=== PATIENT | male | born 1950 | race Caucasian/White ===

== ENCOUNTER 2023-05-20 20:29 | Inpatient (IN) | payer MEDICARE, OTHER, SELFPAY ==
[2023-05-20] VITALS (7 sets, daily range): BP systolic 125–141; BP diastolic 61–83; BMI 26.1
[2023-05-20] MEDS: ZOFRAN 4 MG IV ×2 (17:51→19:20)
[2023-05-20] MEDS: NSS 2000 IV (17:51)
[2023-05-20] MEDS: DILAUDID 1 MG IV ×3 (17:51→21:57)
--- NOTE | 2023-05-20 18:02 | ED.GENMED ---
History of Present Illness
General
Chief Complaint: Abdominal Pain
Source: patient
Exam Limitations: none
Time Seen by Provider: 05/20/23 17:41
Nursing documentation reviewed up to this point in time: agreed with
Travel History
Have you had any contact with someone who has COVID-19?: No
Do you have any symptoms of coronavirus? Fever > 100 degrees, chills, cough, shortness of breath, sore throat, loss of taste or smell, muscle aches, or headache?: No
History of Present Illness
History of Present Illness:
73-year-old male with distant history of kidney stones acute onset of left lower abdominal pain trouble urinating pain in the tip of his penis at 1 PM vomited numerous times yesterday some diarrhea chills, does not believe he is ever passed a kidney
stone but was told that he has a stone
Past History
Past History
ED Past Medical History: Cancer
ED Past Surgical History: Other (prostatectomy )
Social History
Tobacco: Non-smoker
Alcohol: None
Drug: None
Living: with family
Employment: Retired
Review of Systems
Review of Systems
All Other Systems: Not applicable
Constitutional: Reports chills; Denies fever or fatigue
EENT: Reports no symptoms
Respiratory: Reports no symptoms
Cardiac: Reports no symptoms
ABD/GI: Reports abdominal pain, nausea, vomiting and diarrhea
: Reports difficulty voiding
Hematologic/Lymphatic: Reports no symptoms
Psychiatric: Reports no symptoms
Phy Exam
Physical Exam
Physical Exam:
Physical Exam
General: 73 male looks uncomfortable in acute pain
Neck: Lips are slightly
Heart: Regular
Lungs: no acute respiratory distress. clear bilaterally
Abdomen: Soft tender in the left lower
Neuro: alert and oriented. no focal neurological deficits
Skin: no rash
Psychiatric: cooperative
Extremities: no edema.
Course
Orders/Labs/Results
Orders:
Orders
05/20/23 17:45
Cardiac Monitoring- Treatment ONCE
IV Insert/Care/Rem.- Treatment PRN
Urinalysis Reflex To Culture Urgent
0.9% Sodium Chloride 1000 ml [Nss] 2,000 ml IV BOLUS
HYDROmorphone [Dilaudid] 1 mg IV NOW STA
Ondansetron Injectable [Zofran] 4 mg IV NOW STA
05/20/23 17:46
CT Abd/pel Without Iv Or Oral Urgent
Comment:
Reason For Exam: left lower quad pain
05/20/23 17:56
Complete Blood Count/With Diff Urgent
Comprehensive Metabolic Panel Urgent
Lactic Acid Q4H
Comment: CANCEL 2nd LACTIC ACID IF 1st LACTIC ACID IS LESS THAN 2
Lipase Urgent
Blood Culture Q30M
CECILIA Source: Blood/Venous
Specimen Description:
Blood Culture Q30M
CECILIA Source: Blood/Venous
Specimen Description:
05/20/23 19:12
HYDROmorphone [Dilaudid] 1 mg IV NOW STA
05/20/23 19:17
Ondansetron Injectable [Zofran] 4 mg IV NOW STA
05/20/23 19:30
UROLOGY CONSULT Urgent
Consulting Provider: Ashu Franklin
Was physician already notified: Yes
05/20/23 19:31
CefTRIAXone [Rocephin] 1,000 mg IV NOW STA
05/20/23 22:00
Lactic Acid Q4H
Comment: CANCEL 2nd LACTIC ACID IF 1st LACTIC ACID IS LESS THAN 2
Abnormal Lab Results
05/20/23
17:56
WBC 14.8 H 10^3/uL
(4.8-10.8)
MPV 10.9 H fL
(7.4-10.4)
Abs Immat Gran (auto) 0.1 H 10^3/uL
(0-0.05)
Absolute Neuts (auto) 12.6 H 10^3/uL
(1.4-6.5)
Neutrophils % 85.5 H %
(42.2-75.2)
Lymphocytes % 9.4 L %
(20.5-51.1)
Carbon Dioxide 20 L mmol/L
(22-30)
Glucose 141 H mg/dl
(70-99)
Lactic Acid 3.9 H mmol/L
(0.7-2.0)
Total Bilirubin 2.3 H mg/dl
(0.2-1.3)
05/20/23 17:56
05/20/23 17:56
Vital Signs
Initial and Last Documented VS:
Initial Vital Signs
Temp Pulse Resp BP
97.8 F 55 22 132/79
05/20/23 17:34 05/20/23 17:34 05/20/23 17:34 05/20/23 17:34
Last Documented Vital Signs
Temp Pulse Resp BP
97.8 F 64 25 134/65
05/20/23 17:34 05/20/23 19:15 05/20/23 19:15 05/20/23 19:00
MDM/Problems Addressed
Differential Diagnosis Includes:
Ureteral stone colitis diverticulitis enteritis
MDM/Problems Addressed:
Abdominal pain
Chronic conditions affecting care: Cancer
Acute Exacerbation and/or Progression of Chronic Illness: Cancer
*Radiology
Radiology exam reviewed: preliminary read by ED provider
*Pulse Oximetry
Patient hypoxic: no
*Critical Care Note
Total Time (30-74mins, 75-104mins- exclusive of procedures): Not Applicable
Update Note
Update Note:
Update 7:10 PM patient back from CAT scan looks like a stone and hydro to my eye full report pending having pain per report will redosed with meds
7:25 PM CAT scan report noted reviewed with patient and friend prior records reviewed he had sepsis after prostate biopsy he tolerated penicillins and cephalosporins at that time
Reviewed with hospitalist and urologist, urinalysis is pending started on Rocephin here plan is for admission for OR tomorrow sooner if he develops instability
ED Attending Note
-
Portions of this chart may have been created with voice recognition software.� Occasional wrong word or��sound alike� substitutions may have occurred due to the inherent limitations of voice recognition software.
Discharge Plan
Departure
Patient Disposition: Admit
Date of Disposition: 05/20/23
Time of Disposition: 19:32
Admit to: Med/Surg
Presentation/result/management discussed w/ accepting MD/DO: Hospitalist
Patient with high blood pressure during this ER visit?: No
Condition: Fair
Covid-19: Not Applicable
Discharge Problem:
Ureteral colic
Prescriptions:
No Action
valacyclovir [Valtrex] 500 MG tablet
500 mg PO DAILY
aspirin 81 MG tablet
81 mg PO DAILY
Patient Comments:
stopped taking pre-op 03/14/09
Zocor
20 mg PO DAILY
Patient Comments:
pt not sure of mg dosage
Sharon
PRN (Reason: allergy symptoms)
Patient Comments:
last dose was 1 month ago
oxycodone-acetaminophen 5 MG/325 MG tablet
1 tab PO Q6HPRN PRN (Reason: pain) Qty: 15 0RF
Referrals:
Adrian Gonzalez MD [Family Provider] -
Interventions
Interventions:
*Risk Screen - Suicide Last Done: 05/20/23 17:42
*General Assessment Last Done: 05/20/23 17:43
*Neglect/Abuse Screening Last Done: 05/20/23 17:42
*ED COVID-19 Vaccine History Last Done: 05/20/23 17:43
WD-Zudxqu-Vgtpuxlzkj Assessment Last Done: 05/20/23 17:43
Discharge Date and Time
Print Language: UZBEK
[2023-05-20 18:05] LABS: % Basophils 0.4 % (0-2); % Eosinophils 0.1 % (0-6); % Immature Granulocytes 0.3 % (0-0.5); % Lymphocytes 9.4 % (20.5-51.1); % Monocytes 4.3 % (1.7-9.3); % Neutrophils 85.5 % (42.2-75.2); Absolute Basophils 0.1 10^3/uL (0-0.2); Absolute Immature Granulocytes 0.1 10^3/uL (0-0.05); Absolute Lymphocytes 1.4 10^3/uL (1.2-3.4); Absolute Monocytes 0.6 10^3/uL (0.1-0.6); Absolute Neutrophils 12.6 10^3/uL (1.4-6.5); Hematocrit 44.8 % (39.0-52.0); Mean Corp Hgb Conc. 35.7 g/dL (33.0-37.0); Mean Corpuscular Hgb 30.9 pg (27.0-31.0); Mean Corpuscular Volume 86.7 fL (80.0-94.0); Mean Platelet Volume 10.9 fL (7.4-10.4); Nucleated Red Blood Cells % 0 % (-); Platelet Count 161 10^3/uL (130-400); Red Blood Cell Count 5.17 10^6/uL (4.70-6.10); Red Cell Dist. Width 13.7 % (11.5-14.5); White Blood Cell Count 14.8 10^3/uL (4.8-10.8)
[2023-05-20 18:19] LABS: ALT (SGPT) 22 U/L (0-50); AST (SGOT) 27 U/L (17-59); Alkaline Phosphatase 99 U/L (38-126); Blood Urea Nitrogen 18 mg/dl (9-20); Carbon Dioxide 20 mmol/L (22-30); Chloride 104 mmol/L (98-107); Glucose 141 mg/dl (70-99); Lipase 82 U/L (23-300); Potassium 3.6 mmol/L (3.5-5.1); Sodium 138 mmol/L (135-145); Total Bilirubin 2.3 mg/dl (0.2-1.3); Total Protein 7.8 g/dl (6.3-8.2); eGFR > 60.00
[2023-05-20 18:20] LABS: Lactic Acid 3.9 mmol/L (0.7-2.0)
[2023-05-20] MEDS: ROCEPHIN 1000 MG IV (19:48)
--- NOTE | 2023-05-20 19:48 | HPS.HSE ---
Family Physician
-
Family Physician: Adrian Gonzalez
Chief Complaint
-
Problems with urination
History of Present Illness
73-year-old man with history of kidney stones has acute onset of left lower abdominal pain, trouble urinating, pain in the tip of his penis, and at 1 PM he vomited numerous times. Yesterday he had some diarrhea chills. CT shows:
1. Obstructive uropathy secondary to an 8 mm calculus in the distal left ureter and a 5 mm calculus in the proximal left ureter causing severe left hydroureteronephrosis.
2. Bilateral nephrolithiasis.
He also has an elevated WBC of 14.8. At the time of my interview he was comfortable.
Medical History
Past Medical History
Past Medical History: Reports Other
Additional Past Medical History:
kidney stones
high cholesterol
Sleep apnea
Past Surgical History: Reports None
Social History
Tobacco: Non-smoker
Alcohol: None
Drug: None
Family History
Family History: Other (Brother has kidney stones)
Allergies / Home Medications
Allergies reflects when Allergies were last updated in [facility].
Home Medications with original date entered in [facility]
Allergy/Medication List:
Allergies
Allergy/AdvReac Type Severity Reaction Status Date / Time
iodine [Iodine] Allergy possible Verified 05/20/23 17:34
allergy
Penicillins Allergy Unknown Verified 05/20/23 17:34
Home Medications
simvastatin 20 mg tablet (Zocor) 20 mg PO DAILY 01/09/09
valacyclovir 500 mg tablet (Valtrex) 500 mg PO DAILY 01/09/09
sildenafil 100 mg tablet 100 mg PO DAILYPRN PRN ed 05/20/23
Review of Systems
-
A 12 point ROS was completed and negative except as noted: Yes
Physical Exam
Vital Signs
Vital Signs
Temp Pulse Resp BP
97.8 F 64 25 134/65
05/20/23 17:34 05/20/23 19:15 05/20/23 19:15 05/20/23 19:00
Physical Exam
General: Well Developed, Well Nourished, No Apparent Distress, Comfortable and Conversant
HEENT: NormoCephalic, Moist mucous membranes, [place] Conjunctivae, No Ptosis, Nose Appears Normal and Ears Appear Normal
Respiratory: Clear
Cardiac: S1/S2 and Regular Rhythm
GI: Soft, Tender and Flat
Musculoskeletal: No Clubbing, No Cyanosis and No Edema
Skin: Warm and Dry; No Rash or Jaundice
Neuro: Awake, Alert, Oriented and AO x 3
Psych: Calm
Laboratory Results
-
05/20/23 17:56
05/20/23 17:56
Laboratory Results
Lactic Acid 3.9 mmol/L (0.7-2.0) H 05/20/23 17:56
Total Bilirubin 2.3 mg/dl (0.2-1.3) H 05/20/23 17:56
AST 27 U/L (17-59) 05/20/23 17:56
ALT 22 U/L (0-50) 05/20/23 17:56
Alkaline Phosphatase 99 U/L (38-126) 05/20/23 17:56
Lipase 82 U/L (23-300) 05/20/23 17:56
Data Reviewed
-
Lab Data: Labs Reviewed by me
Impression/Plan
-
IMPRESSION:
73 man with h/o kidney stones comes in with kidney stones. CT shows:
1. Obstructive uropathy secondary to an 8 mm calculus in the distal left ureter and a 5 mm calculus in the proximal left ureter causing severe left hydroureteronephrosis.
2. Bilateral nephrolithiasis.
PLAN:
1. Kidney stones
Urology consulted
NPO after midnight, likely stent tomorrow
IV antibiotics
IV fluids
Pain and nausea control
Full code
VCD for DVTp
--- NOTE | 2023-05-20 21:00 | W.PN.UPDATE ---
Update Note
Progress Note Update
73M presenting to ER w/ emesis, left lower quadrant abdominal pain, urethral pain.
WBC - 14.8
Cr - wnl
UA - not indicative of UTI
CTAP w/o IV contrast =>
1. Obstructive uropathy secondary to an 8 mm calculus in the distal left ureter and a 5 mm calculus in the proximal left ureter causing severe left hydroureteronephrosis.
2. Bilateral nephrolithiasis.
Plan:
- Admit to Hospital Medicine, analgesics prn, anti-emetics prn
- IV Cipro initiated on admission
- NPO@MN
- To OR tomorrow afternoon for cysto + LEFT stent placement (posted to OR schedule)
- Patient to be examined in AM and surgical consent obtained
D/w ER physician.
D/w Hospitalist.
[2023-05-20] MEDS: NSS 1000 IV (21:58)
--- NOTE | 2023-05-20 22:00 | PTCARENOTE ---
Pt arrived to unit from ED and ambulated independently from stretcher to bed. VS on admission stable. Pt oriented to room, call valdes within reach. Will continue to monitor.
[2023-05-20 22:09] LABS: Lactic Acid 1.3 mmol/L (0.7-2.0)
[2023-05-20] MEDS: COMPAZINE 5 MG IV (22:19)
[2023-05-21] VITALS (9 sets, daily range): BP systolic 105–126; BP diastolic 54–65
[2023-05-21] MEDS: DILAUDID 1 MG IV ×2 (03:01→12:48)
--- NOTE | 2023-05-21 04:00 | PTCARENOTE ---
2218: Pt complaining of nausea, no anti-emetic medications ordered. [place] MAXINE Rea notified, order for 1x IV Compazine 5mg provided to pt. At 0400 pt reports nausea again. [place] MAXINE Rea notified, order for PRN IV Compazine
5mg q6h acknowledged and given to pt.
[2023-05-21] MEDS: COMPAZINE 5 MG IV (04:32)
[2023-05-21] MEDS: NSS 1000 IV ×3 (05:47→18:14)
[2023-05-21] MEDS: CIPRO 400 MG 200 IV ×2 (08:49→20:25)
[2023-05-21 09:13] LABS: Hematocrit 42.8 % (39.0-52.0); Hemoglobin 14.1 g/dL (13.0-18.0); Mean Corp Hgb Conc. 32.9 g/dL (33.0-37.0); Mean Corpuscular Hgb 30.5 pg (27.0-31.0); Mean Corpuscular Volume 92.4 fL (80.0-94.0); Mean Platelet Volume 11.4 fL (7.4-10.4); Platelet Count 121 10^3/uL (130-400); Red Blood Cell Count 4.63 10^6/uL (4.70-6.10); Red Cell Dist. Width 14.2 % (11.5-14.5); White Blood Cell Count 14.5 10^3/uL (4.8-10.8)
[2023-05-21 09:36] LABS: Blood Urea Nitrogen 19 mg/dl (9-20); Calcium 8.6 mg/dl (8.4-10.2); Carbon Dioxide 24 mmol/L (22-30); Chloride 105 mmol/L (98-107); Estimated Creatinine Clearance 47 ml/min; Glucose 105 mg/dl (70-99); Magnesium 2.1 mg/dl (1.6-2.3); Sodium 140 mmol/L (135-145); eGFR 52.41
--- NOTE | 2023-05-21 11:35 | CM ---
Patient seen bedside, initial assessment completed. Patient reports he resides with his in a three story home, three steps to enter. Patient reports VN in past in 2009 after prostate surgery, denies SNF. Patient has a CPAP through .
Supply in [place], denies other DME. Patient confirms PCP Dr. Gonzalez, pharmacy [facility]. CM will continue to follow for discharge planning needs, per chart, plan for OR this afternoon.
Plan; home with , watch for VN needs.
--- NOTE | 2023-05-21 12:13 | W.PN.HOSP.TC ---
Today's Communication/Plan
-
Continue IV fluids
Continue ciprofloxacin
Monitor renal status
Bladder scan protocol
Await urologic intervention and monitor
Assessment / Plan
Assessment / Plan
73-year-old man with history of kidney stones has acute onset of left lower abdominal pain, trouble urinating, pain in the tip of his penis, and at 1 PM he vomited numerous times. Yesterday he had some diarrhea chills. CT shows:
1. Obstructive uropathy secondary to an 8 mm calculus in the distal left ureter and a 5 mm calculus in the proximal left ureter causing severe left hydroureteronephrosis.
2. Bilateral nephrolithiasis.
He also has an elevated WBC of 14.8. At the time of my interview he was comfortable.
Does state although he is having left flank pain moving up he is also not urinated this morning at all.
1. Kidney stones
Urology consulted
NPO after midnight, likely stent today
IV antibiotics
IV fluids
Pain and nausea control
2. Acute kidney injury
-In relation to obstructive uropathy
-Severe left hydroureteronephrosis seen on imaging
-Will place on bladder scan protocol and straight cath as necessary while awaiting urologic intervention
-Continue IV fluids trend BMP
3. UTI possibly complicated
-Continue on ciprofloxacin IV
Full code
VCD for DVTp
Anticipated Discharge: Within 24 hours
Subjective/Interval History
-
Date of Service: May 21, 2023
Patient with referred left flank pain now seems to be moved up with it he states. He has not urinated any appreciable amount around this morning. Does not refer any suprapubic discomfort as yet.
Objective Data
-
Labs:
Laboratory Results
05/21/23
08:19
WBC 14.5 H
Hgb 14.1
Hct 42.8
Plt Count 121 L D
Sodium 140
Potassium 4.0
Chloride 105
Carbon Dioxide 24
BUN 19
Creatinine 1.4 H
Glucose 105 H
Calcium 8.6
Vital Signs:
Vital Signs
Temp Pulse Resp BP Pulse Ox
98.3 F 54 18 115/64 94
05/21/23 07:30 05/21/23 07:30 05/21/23 07:30 05/21/23 07:30 05/21/23 07:30
I&O
05/20/23 05/21/23 05/22/23
06:59 06:59 06:59
Intake Total 1480 / 1480
Balance 1480 / 1480
Review of Systems
-
History Source: Patient
Abdomen/GI: Reports Abdominal Pain
Genitourinary: Reports Flank Pain and Hesitancy
Physical Exam
-
General: Well Developed
Respiratory: Clear to Auscultation
Cardiac: Regular Rhythm
GI: Soft, Nontender and Nondistended
Genito-urinary: Costovertebral Angle Tend
Neuro: Awake and Alert
Data Reviewed
-
Total Time Spent with Patient (in minutes): 45
Labs: Labs Reviewed by me (No 1.4 above his baseline 1.1)
[2023-05-21 12:51] LABS: Urine Albumin Negative (Neg - Trace); Urine Bilirubin 1+ (Negative); Urine Character Clear (Clear); Urine Color Yellow; Urine Glucose Negative (Negative); Urine Ketone Trace (Negative); Urine Leukocyte Negative (Negative); Urine Nitrite Positive (Negative); Urine Occult Blood Negative (Negative); Urine Specific Gravity 1.025 (<1.030); Urine Urobilinogen 1+ (Neg - 1+)
[2023-05-21 13:36] LABS: Urine Bacteria Few (Negative); Urine Mucus Few; Urine Red Blood Cell 0-2 /HPF (0-2); Urine Squamous Cell 0-2 /LPF (Few); Urine White Cell 0-2 /HPF (0-5)
--- NOTE | 2023-05-21 15:44 | W.SUR.PREOP ---
Pre-Operative Surgical Note
-
I have examined this patient prior to the performance of the scheduled procedure.
The patient's condition is unchanged from the time of the current History and
Physical and the patient is able to undergo the scheduled procedure.
Reviewed risks, benefits, alternatives, potential complications of URS/LL/stone extraction/stent placement vs. stent placement only - including but not limited to urosepsis, bleeding, ureteral/bladder injury, risk of ureteral stricture formation,
and need for additional surgeries in future.
To OR for cysto + LEFT stent placement (possible URS/LL)
Surgical consent signed on chart
D/w patient in preop holding.
--- NOTE | 2023-05-21 16:16 | W.IMMPOSTOP ---
Surgical Immed Post Op Note
-
Primary Surgeon: Rigoberto
Pre-op Diagnosis: Obstructing proximal and distal left ureteral stones w/ severe hydronephrosis
Post-op Diagnosis: Same
Procedure Performed: cysto, stone manipulation, left stent placement
Anesthesia Type: LMA
Specimen / Cultures: None/None
Estimated Blood Loss: Negligible
Drains: 6Fr x 26 cm JJ left ureteral stent
Complications: None
Operative Findings:
Narrow bladder neck w/o evidence of bladder neck contracture.
Edematous and pinpoint left UO w/ difficulty passing guidewire - resistance navigated under fluoroscopy and w/ 5Fr ureteral catheter.
Final KUB and cysto confirming appropriate positioning of left ureteral stent w/ hydronephrotic drip from distal curl.
[2023-05-21] MEDS: DETROL LA 2 MG PO (17:00)
--- NOTE | 2023-05-21 17:20 | PTCARENOTE ---
Received pt from PACU via bed, A,A+O x 3. No c/o pain. Requesting to eat. Menu given and pt ordering food. IV fluids restarted. Continue to monitor.
[2023-05-22] MEDS: NSS IV (00:37)
[2023-05-22] MEDS: NSS 1000 IV ×2 (00:38→06:15)
[2023-05-22 03:00] VITALS: BP 115/63
--- NOTE | 2023-05-22 05:04 | PTCARENOTE ---
Pt's IV fluids up for renewal. Pt is back on regular diet and eating, urinating without issue but urine is dark andres. House SECRETARY OFFICE CLERK Rita Rea notified, order for IVFs renewed with IV rate decreased from 200 to 125 mL/hr.
[2023-05-22 05:56] LABS: Hepatitis C Antibody Negative (Negative)
[2023-05-22] MEDS: ROXICODONE 5 MG PO (06:19)
[2023-05-22 07:30] VITALS: BP 121/65
[2023-05-22 07:36] LABS: Hemoglobin 12.5 g/dL (13.0-18.0); Mean Corp Hgb Conc. 33.8 g/dL (33.0-37.0); Mean Corpuscular Hgb 31.2 pg (27.0-31.0); Mean Corpuscular Volume 92.3 fL (80.0-94.0); Mean Platelet Volume 11.6 fL (7.4-10.4); Platelet Count 110 10^3/uL (130-400); Red Blood Cell Count 4.01 10^6/uL (4.70-6.10); Red Cell Dist. Width 14.5 % (11.5-14.5); White Blood Cell Count 9.6 10^3/uL (4.8-10.8)
[2023-05-22 07:59] LABS: Chloride 111 mmol/L (98-107); Glucose 89 mg/dl (70-99)
[2023-05-22 08:30] LABS: Blood Urea Nitrogen 15 mg/dl (9-20); Carbon Dioxide 22 mmol/L (22-30); Estimated Creatinine Clearance 66 ml/min; Potassium 3.6 mmol/L (3.5-5.1); Sodium 136 mmol/L (135-145); eGFR > 60.00
[2023-05-22] MEDS: CIPRO 400 MG 200 IV (08:41)
--- NOTE | 2023-05-22 10:50 | CM ---
Addendum entered by Rosa Maria Dior 05/22/23 11:41:
IMM reviewed with patient, signed, placed in patients chart. CM offered VN to patient, patient declining. Patients will provide transportation home.
Plan; home with , declining VN.
Original Note:
Patient seen with , reports no concerns to CM at this time. CM will continue to follow for discharge planning needs, watch for VN needs.
Plan; home no needs, watch for VN needs.
--- NOTE | 2023-05-22 11:04 | W.DS.TRANS ---
DC Summary - Automatic Lathe Tender
-
Discharge Instructions:
Discharge Diagnosis/Procedures Ureteral colic/left-sided distal and proximal
stone
Obstructive uropathy
Hydroureteronephrosis
Status post cystoscopic/stone manipulation and
left ureteral stent
Diet Regular
Activity No restrictions
Driving Restrictions As prior to admission
Instructions:
Stand-Alone Forms:
Changes to Home Medications: Yes
Discharge Medications:
DC Medications w/original date entered in [facility]
simvastatin 20 mg tablet (Zocor) 20 mg PO DAILY 01/09/09
valacyclovir 500 mg tablet (Valtrex) 500 mg PO DAILY 01/09/09
sildenafil 100 mg tablet 100 mg PO DAILYPRN PRN ed 05/20/23
tamsulosin 0.4 mg capsule 0.4 mg PO HS #20 caps 05/22/23
Home Medication Changes
tamsulosin 0.4 mg capsule 0.4 mg PO HS #20 caps 05/22/23
Pending Results: No
--- NOTE | 2023-05-22 11:05 | W.PN.URO.CBU ---
Today's Communication / Plan
-
OK to d/c home from urologic perspective
Start tamsulosin 0.4 mg qhs x7 days
No indication for abx (UCx/BCx NG)
F/U in 2 days for VT/cath removal in office
F/U with Dr. Barnes w/n 2 weeks for preop visit to schedule definitive stone surgery
D/w patient.
D/w Dr. Cervantes.
Assessment / Plan
-
Obstructing left ureteral stones
KAI - RESOLVED
Leukocytosis - RESOLVED
H/o prostate cancer s/p RPP (2009)
05/20: s/p cysto/stone manipulation + left stent placement
Post-op urinary retention likely secondary to instrumentation and general anesthesia - Dickey catheter placed.
Diagnosis
-
Date of Service: May 22, 2023
-
Patient Diagnosis:
Obstructing left ureteral stones
KAI
Leukocytosis
H/o prostate cancer s/p RPP (2009)
Post Op Day:
05/20: s/p cysto/stone manipulation + left stent placement
Subjective
-
Voided w/ PVR of 500 cc this AM - Dickey catheter placed.
Notes relief of suprapubic pain w/ catheter.
Objective
-
Vital Signs
Temp Pulse Resp BP Pulse Ox
97.9 F 61 18 121/65 93
05/22/23 07:30 05/22/23 07:30 05/22/23 07:30 05/22/23 07:30 05/22/23 07:30
Intake and Output
05/21/23 05/22/23 05/23/23
06:59 06:59 06:59
Intake Total 5360 / 5360
Output Total 655 / 655
Balance 4705 / 4705
Intake:
Oral fluids 960 / 960
IV fluids (Total) 4000 / 4000
IV piggybacks 400 / 400
Output:
Urine, Voided 655 / 655
Other:
Number of approximated SMALL 1
amounts of urine
Laboratory Results
05/22/23 06:53
05/22/23 06:53
Physical Exam
-
General - well developed, well nourished, no acute distress
Abdomen - soft, non-tender
Genitalia - normal, Dickey catheter in place
Skin - warm & dry with no rash
Neuro - AOx3, no motor deficits
Extremities - no clubbing, no cyanosis, no edema
Care Review
Data Reviewed
Discussed with: Hospitalist and Family
CT Scan: Report Pers Reviewed and Image Pers Reviewed
[2023-05-22 11:45] VITALS: BP 139/68
--- NOTE | 2023-05-22 14:23 | W.DCSUMMARY ---
Addendum entered and electronically signed by Addison Cervantes MD 06/04/23 14:17:
Actual discharge date and date of dictation was May 21May
Original Note:
Discharge Summary
Discharge Data
Date of Admission: 05/20/23
Date of Discharge: 06/04/23
-
Pending Results: No
Hospital Course
73-year-old male presented on date of admission with left flank pain and acute kidney injury with elevated creatinine and proportion previous baseline levels up to 1.4 with imaging noting proximal and distal ureteral stones measuring 5 mm and
distally 8 mm with an obstructive and severe hydronephrosis. Patient does have a history of prostate cancer and prostatectomy. Presented with leukocytosis and suspected complicated urinary tract infection in the setting of obstructive uropathy.
He was able to void but unable to empty his bladder completely with postvoid residual elevated he was started on empiric management with ciprofloxacin and IV fluids and seen by the urology service to schedule a cystoscopic stone manipulation on
May with eventual left stent placement with operative findings as follows:
Narrow bladder neck w/o evidence of bladder neck contracture.
Edematous and pinpoint left UO w/ difficulty passing guidewire - resistance navigated under fluoroscopy and w/ 5Fr ureteral catheter.
Final KUB and cysto confirming appropriate positioning of left ureteral stent w/ hydronephrotic drip from distal curl.
Patient was observed overnight given his presentation of acute kidney injury with resolution of creatinine from back to his baseline of 1.0 however the patient was again noted to have elevated postvoid residuals and urine retention and decision was
made for an indwelling Dickey catheter for his ongoing home management at discharge it was felt he would not need further antibiotic coverage as his urine culture came back no growth. He was given a prescription for tamsulosin 0.4 mg at bedtime
until seen by the urology service this later in the week. He was also given a prescription for oxycodone 5 mg every 6 hours as needed numbering [address] Franklin on the urology service went over the discharge plan with the patient by phone with the understanding he will go home with a Dickey catheter until further management as outpatient by them and follow-up of his stent.
Discharge Plan
-
Patient Disposition: Home (Routine Discharge)
Discharge Diagnosis/Procedures: Ureteral colic/left-sided distal and proximal stone
Obstructive uropathy
Hydroureteronephrosis
Status post cystoscopic/stone manipulation and left ureteral stent
Diet: Regular
Activity: No restrictions
Driving Restrictions: As prior to admission
Referrals:
Ashu Franklin MD [Active] -
(Please call the [facility] office to schedule a catheter removal (voiding trial) on morning (05/23) with the nurse.
Please also schedule a preop visit with Dr. Barnes - Dr. Barnes will schedule you for an outpatient kidney stone surgery on 06/14/23 to allow for passive dilation of your ureter after recent stent placement. )
Adrian Gonzalez MD [Family Provider] - in less than 1 week
Prescriptions:
New
tamsulosin 0.4 mg capsule
0.4 mg PO HS Qty: 20 0RF
oxycodone 5 mg capsule
5 mg PO Q8H PRN (Reason: Pain) Qty: 10 0RF
Continued
valacyclovir [Valtrex] 500 MG tablet
500 mg PO DAILY
simvastatin [Zocor] 20 mg Tablet
20 mg PO DAILY
sildenafil 100 mg Tablet
100 mg PO DAILYPRN PRN (Reason: ed)
Discharge Orders:
Discharge Patient (As Directed); Ordered 05/22/23
Ordered By: Addison Cervantes
Discharge Date and Time
Discharge Date/Time: 05/22/23 12:25
Print Language: CITIZEN OF [place]
== END 2023-05-22 12:25 | disposition home or self-care (01) | DRG 661 ==
LOC: 4 WEST ACU 20:29
PROVIDERS: Surgery; ADMITTING PHYSICIAN Internal Medicine; ATTENDING PHYSICIAN Internal Medicine; EMERGENCY PHYSICIAN Emergency Medicine; FAMILY PHYSICIAN Internal Medicine
PROC: 0T778DZ Dilation of Left Ureter with Intraluminal Device, Via Natural or Artificial Opening Endoscopic (ICD-10-PCS; 2023-05-21)
PROC: 0T9B70Z Drainage of Bladder with Drainage Device, Via Natural or Artificial Opening (ICD-10-PCS; 2023-05-22)
DX: N13.2 Hydronephrosis with renal and ureteral calculous obstruction (principal); E78.00 Pure hypercholesterolemia, unspecified; N20.0 Calculus of kidney; N17.9 Acute kidney failure, unspecified; G47.30 Sleep apnea, unspecified; N99.89 Other postprocedural complications and disorders of genitourinary system; Y84.6 Urinary catheterization as the cause of abnormal reaction of the patient, or of later complication, without mention of misadventure at the time of the procedure; Y73.3 Surgical instruments, materials and gastroenterology and urology devices (including sutures) associated with adverse incidents; Y92.239 Unspecified place in hospital as the place of occurrence of the external cause; Z88.0 Allergy status to penicillin; Z87.442 Personal history of urinary calculi; Z79.82 Long term (current) use of aspirin; Z85.46 Personal history of malignant neoplasm of prostate
CPT/HCPCS: 74018; 74176; 76000; 80048; 80053; 81003; 81015; 83605; 83690; 83735; 85025; 85027; 86803; 87040; 87086; 96361; 96374; 96375; 96376; 99285; C2617

== ENCOUNTER → 2023-05-31 09:19 | Outpatient (REF) | payer MEDICARE, OTHER, SELFPAY | LOC: SDSPAT 09:19 | PROVIDERS: ATTENDING PHYSICIAN Specialist; FAMILY PHYSICIAN Internal Medicine | DX: N20.0 Calculus of kidney (principal) | CPT/HCPCS: 93005 ==

== ENCOUNTER 2023-06-14 06:21 | Day surgery (SDC) | payer MEDICARE, OTHER, SELFPAY ==
[2023-05-31 09:45] VITALS: BMI 26.2
[2023-06-14] VITALS (8 sets, daily range): BP systolic 124–157; BP diastolic 72–86; BMI 26.2
[2023-06-14] MEDS: NORMOSOL-R 1000 IV (08:55)
[2023-06-14 08:57] LABS: APTT 30.9 Sec (23.4-35.0)
[2023-06-14 09:37] LABS: Urine Albumin Trace (Neg - Trace); Urine Bilirubin Negative (Negative); Urine Character Clear (Clear); Urine Color Yellow; Urine Glucose Negative (Negative); Urine Ketone Trace (Negative); Urine Leukocyte Negative (Negative); Urine Nitrite Negative (Negative); Urine Occult Blood 4+ (Negative); Urine Specific Gravity 1.025 (<1.030); Urine Urobilinogen Negative (Neg - 1+)
[2023-06-14 09:51] LABS: Urine Red Blood Cell 0-2 /HPF (0-2)
[2023-06-19 13:41] LABS: Stone Analysis Mass 6 mg
== END 2023-06-14 14:30 | disposition home or self-care (01) ==
LOC: SDS 06:21
PROVIDERS: ATTENDING PHYSICIAN Specialist
DX: N20.1 Calculus of ureter (principal)
CPT/HCPCS: 52356; 74018; 76000; 81003; 81015; 82365; 85730; 87086; A4300; C2617

== ENCOUNTER → 2024-03-31 14:34 | Outpatient (REF) | payer MEDICARE, OTHER, SELFPAY ==
[2024-04-01 01:51] LABS: PSA, Total - Diagnostic < 0.06 ng/ml (0.0-4.0)
== END ==
LOC: REG 14:34
PROVIDERS: ATTENDING PHYSICIAN Specialist; FAMILY PHYSICIAN Internal Medicine
DX: C61 Malignant neoplasm of prostate (principal)
CPT/HCPCS: 36415; 84153

== ENCOUNTER → 2024-11-05 17:48 | Outpatient (REF) | payer MEDICARE, OTHER, SELFPAY | LOC: RAD 17:48 | PROVIDERS: ATTENDING PHYSICIAN Specialist; FAMILY PHYSICIAN Internal Medicine | DX: N20.0 Calculus of kidney (principal) | CPT/HCPCS: 74018 ==

== ENCOUNTER → 2024-11-13 13:47 | Outpatient (REF) | payer MEDICARE, OTHER, SELFPAY ==
[2024-11-13 16:44] LABS: Hematocrit 40.7 % (39.0-52.0); Hemoglobin 13.5 g/dL (13.0-18.0); Mean Corp Hgb Conc. 33.2 g/dL (33.0-37.0); Mean Corpuscular Volume 94.7 fL (80.0-94.0); Nucleated Red Blood Cells % 0 % (-); Platelet Count 171 10^3/uL (130-400); Red Cell Dist. Width 13.8 % (11.5-14.5)
[2024-11-13 16:54] LABS: INR 1.03; PT 14.0 Sec (11.4-14.6)
[2024-11-13 17:04] LABS: ALT (SGPT) 30 U/L (0-50); AST (SGOT) 26 U/L (17-59); Albumin 4.1 g/dl (3.5-5.0); Alkaline Phosphatase 60 U/L (38-126); Blood Urea Nitrogen 19 mg/dl (9-20); Calcium 9.0 mg/dl (8.4-10.2); Carbon Dioxide 30 mmol/L (22-30); Chloride 103 mmol/L (98-107); Glucose 84 mg/dl (70-99); Potassium 4.3 mmol/L (3.5-5.1); Sodium 138 mmol/L (135-145); Total Protein 7.0 g/dl (6.3-8.2); eGFR > 60.00
== END ==
LOC: REG 13:47
PROVIDERS: ATTENDING PHYSICIAN Specialist; FAMILY PHYSICIAN Internal Medicine
DX: N20.1 Calculus of ureter (principal); C61 Malignant neoplasm of prostate; N17.9 Acute kidney failure, unspecified; N13.9 Obstructive and reflux uropathy, unspecified
CPT/HCPCS: 36415; 80053; 84153; 85025; 85610; 93005

== ENCOUNTER 2024-11-18 06:19 | Day surgery (SDC) | payer MEDICARE, OTHER, SELFPAY ==
[2024-11-18] VITALS (7 sets, daily range): BP systolic 128–133; BP diastolic 60–84; BMI 27.7
[2024-11-18] MEDS: NORMOSOL-R/PLASMALYTE-A 1000 IV (08:14)
== END 2024-11-18 11:30 | disposition home or self-care (01) ==
LOC: SDS 06:19
PROVIDERS: ATTENDING PHYSICIAN Specialist
DX: N20.2 Calculus of kidney with calculus of ureter (principal)
CPT/HCPCS: 52356; 74018; 76000; C2617